=== PATIENT | male | born 2000 | race Caucasian/White ===

== ENCOUNTER 2020-12-18 16:49 | Emergency (ER) | payer MEDICAID ==
[~2020-12-18] VITALS: Ht 165.1 cm; Wt 100.0 kg
[2020-12-18 17:23] VITALS: BP 128/83
== END 2020-12-18 18:58 | disposition home or self-care (01) ==
LOC: ER 17:15
DX: F41.9 Anxiety disorder, unspecified (principal)
CPT/HCPCS: 99283

== ENCOUNTER 2021-03-16 18:16 | Emergency (ER) | payer MEDICAID ==
[~2021-03-16] VITALS: Ht 172.7 cm; Wt 100.0 kg
[2021-03-16 18:52] VITALS: BP 126/64
[2021-03-16] MEDS ORDERED: IBUP-2437 PO (18:56)
== END 2021-03-16 19:45 | disposition left against medical advice (07) ==
LOC: ER 18:16
DX: R42 Dizziness and giddiness (principal); Z53.21 Procedure and treatment not carried out due to patient leaving prior to being seen by health care provider

== ENCOUNTER 2024-04-12 11:38 | Emergency (ER) | payer OTHER, BC ==
[~2024-04-12] VITALS: Ht 177.8 cm; Wt 95.0 kg
[~2024-04-12 11:38] MED LIST: IBUP-2437 PO
[2024-04-12 11:43] VITALS: O2SAT 99
[2024-04-12 11:56] VITALS: BP 134/71; PULSE 86; RESP 18; TEMP 98.5; O2SAT 98
[2024-04-12] MEDS ORDERED: ONDANSETRON HCL 4MG TABLET PO ONE (12:15)
[2024-04-12 12:44] LABS: BASOPHILS % 0.3 % (0.0-2.0); EOSINOPHILS % 0.2 % (0.0-5.0); HEMATOCRIT. 51.2 % (42.0-52.0); HEMOGLOBIN. 16.7 g/dL (14.0-18.0); LYMPHOCYTES % 8.7 % (20.0-50.0); MEAN CORPUSCULAR HEMOGLOBIN 27.4 pg (28.0-32.0); MEAN CORPUSCULAR HGB CONC 32.6 g/dL (31.0-37.0); MEAN PLATELET VOLUME 8.3 fl (7.4-10.4); MONOCYTES % 5.3 % (2.0-8.0); NEUTROPHILS % 85.5 % (40.0-76.0); PLATELET 297 x1000/uL (130-400); RED BLOOD CELL COUNT 6.09 mill/uL (4.7-6.1); RED CELL DISTRIBUTION WIDTH 14.5 % (11.6-14.6)
[2024-04-12 12:56] LABS: CHLORIDE 104 mEq/L (98-107); POTASSIUM 4.6 mEq/L (3.5-5.1); SODIUM 139 mEq/L (136-145)
[2024-04-12 12:58] LABS: CALCIUM 10.2 mg/dL (8.7-10.4); CARBON DIOXIDE 30 mEq/L (21-32)
[2024-04-12 13:02] LABS: CREATININE 1.2 mg/dL (0.6-1.3); GLUCOSE 107 mg/dL (70-105)
[2024-04-12 13:03] LABS: UREA NITROGEN BLOOD 10 mg/dL (9-23)
== END 2024-04-12 13:21 | disposition left against medical advice (07) ==
LOC: ER 11:38
DX: R10.9 Unspecified abdominal pain (principal)
CPT/HCPCS: 36415; 80048; 85025; 99283